=== PATIENT | female | born 1945 ===

== ENCOUNTER 2019-01-06 07:45 | Outpatient (CLI) | payer MEDICARE, MEDICAID | END 2019-01-06 07:46 | disposition home or self-care (01) | LOC: C.PAT 07:45 | DX: N84.0 Polyp of corpus uteri (principal) ==

== ENCOUNTER 2019-01-14 07:22 | Day surgery (SDC) | payer MEDICARE, MEDICAID ==
[2019-01-14 08:15] VITALS: BMI 30.2
[2019-01-14] MEDS ORDERED: ceFOXitin IV 1 gm/100 ml in NS 0 GM/0 ML BAG ONE (09:07)
[2019-01-14] MEDS ORDERED: Propofol 10 mg/ml Inj (20 ML) ONE (10:13)
[2019-01-14] MEDS ORDERED: Midazolam 2 MG/2 ML VIAL ONE (10:13)
[2019-01-14] MEDS ORDERED: HYDROmorphone 0.5 mg/0.5 ml ISec IVP PRN (10:16)
--- NOTE | 2019-01-14 10:47 | PCM.SURG1 ---
Surgeon's Initial Post Op Note - Surgeon's Notes Surgeon: Dr. Jimenez Platform Engineer: None Type of Anesthesia: General LMA Anesthesia Administered By: Dr. Dahl Pre-Operative Diagnosis: 73 yo with Postmenopusal spotting Operative Findings: AV uterus Post-Operative Diagnosis: Same as above Operation Performed: Hysteroscopy D and C, attempted MYOSURE Specimen/Specimens Removed: EMC, ECC Estimated Blood Loss: EBL {In ML}: 10 Blood Products Given: N/A Drains Used: No Drains Post-Op Condition: Good Date of Surgery/Procedure: 01/14/19 Time of Surgery/Procedure: 10:47
[2019-01-14 11:09] VITALS: O2SAT 100
[2019-01-14 12:20] VITALS: BP 140/80; PULSE 67; RESP 18; TEMP 97
--- NOTE | 2019-01-14 22:15 | OP ---
PROCEDURE DATE: 01/14/2019 PREOPERATIVE DIAGNOSES: This is a 73-year-old female with postmenopausal spotting and thickened endometrium. POSTOPERATIVE DIAGNOSES: This is a 73-year-old female with postmenopausal spotting and thickened endometrium. PROCEDURE: Hysteroscopy, dilatation and curettage attempted, MyoSure. SURGEON: Estephanie Jimenez MD ANESTHESIOLOGIST: Jena Garcia MD TYPE OF ANESTHESIA: General LMA. FINDINGS: Anteverted uterus noted to have a stenotic os. COMPLICATION: None. ESTIMATED BLOOD LOSS: 5 mL. INTRAVENOUS FLUID: 100 mL. SPECIMEN: Endometrial curettings as well as endocervical curettings. DESCRIPTION OF PROCEDURE: The patient was informed of the risk factors, benefits, and alternatives of the procedure. Risks factors included infection, bleeding, damage to surrounding organs and tissue, complication from anesthesia and possible . Risk factors were all explained and informed consent was obtained. All risk factors explained, but not limited to. After consent was signed, she was then taken to the operating room, prepped and draped in a normal sterile fashion, placed in dorsal lithotomy position. A weighted speculum was placed into the vagina. The anterior lip of the cervix was grasped with a single-toothed tenaculum. It was noted that she had a stenotic os. distention was performed with normal saline in an 80 gauge syringe ____ dilators were utilized. The uterus was then dilated and the scope was then introduced. A complete surveillance of the cavity was then performed. Upon completion, the MyoSure was attempted, but unsuccessful. Endocervical curetting was performed and submitted to Pathology as well as endometrial curetting was performed and submitted to Pathology. Excellent hemostasis was noted. Upon completion, all instruments were removed from the vagina. Instruments and lap counts were correct x2. The patient was then taken to the recovery room in stable condition and instructed to follow up in the office in approximately two weeks. Estephanie Jimenez MD
== END 2019-01-14 12:40 | disposition home or self-care (01) ==
LOC: C.SDS 07:22
PROVIDERS: ATTEND Obstetrics & Gynecology
DX: N95.0 Postmenopausal bleeding (principal); N84.0 Polyp of corpus uteri; Z78.0 Asymptomatic menopausal state
CPT/HCPCS: 58558; 88305; J1170; J2001; J2250; J2704; J3010